=== PATIENT | female | born 1990 | race Caucasian/White ===

== ENCOUNTER 2017-10-29 13:16 | Emergency (ER) | payer SELFPAY ==
[~2017-10-29] VITALS: Ht 149.9 cm; Wt 87.1 kg
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
--- NOTE | 2017-10-29 13:44 | NUR ---
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
[2017-10-29 14:03] VITALS: BP 124/80
--- NOTE | 2017-10-29 14:03 | NUR ---
Patient discharged to home in stable condition. Written and verbal after care instructions given. Patient verbalizes understanding of instruction.
== END 2017-10-29 14:04 | disposition home or self-care (01) ==
LOC: ER 13:18
DX: S20.212A Contusion of left front wall of thorax, initial encounter (principal); J45.909 Unspecified asthma, uncomplicated; F17.200 Nicotine dependence, unspecified, uncomplicated; Z88.0 Allergy status to penicillin; Z88.5 Allergy status to narcotic agent; V49.49XA Driver injured in collision with other motor vehicles in traffic accident, initial encounter; Y93.89 Activity, other specified; Y92.413 State road as the place of occurrence of the external cause; Y99.8 Other external cause status
CPT/HCPCS: 71045-TC; A4606; Z7610